=== PATIENT | female | born 1980 | race African-American/Black ===

== ENCOUNTER 2018-05-27 11:52 | Emergency (ER) | payer SELFPAY ==
[~2018-05-27] VITALS: Ht 170.2 cm; Wt 85.0 kg
[~2018-05-27 11:52] MED LIST: [UNRECOGNIZED DRUG - REMARK]
[2018-05-27] MEDS ORDERED: CLONIDINE 0.2MG TABLET PO ONE (13:45)
[2018-05-27 14:15] LABS: BASOPHILS % 0.7 % (0.0-2.0); EOSINOPHILS % 0.2 % (0.0-5.0); HEMATOCRIT. 37.6 % (36.0-48.0); HEMOGLOBIN. 12.1 g/dL (12.0-16.0); MEAN CORPUSCULAR HEMOGLOBIN 25.4 pg (28.0-32.0); MEAN CORPUSCULAR VOLUME 78.9 fL (81.0-99.0); MEAN PLATELET VOLUME 8.3 fl (7.4-10.4); MONOCYTES % 4.7 % (2.0-8.0); NEUTROPHILS % 76.4 % (40.0-76.0); PLATELET 326 x1000/uL (130-400); RED BLOOD CELL COUNT 4.77 mill/uL (4.2-5.4); RED CELL DISTRIBUTION WIDTH 18.4 % (11.6-14.6)
[2018-05-27 14:22] LABS: CHLORIDE 104 mEq/L (98-107); PARTIAL THROMBOPLASTIN TIME 27.9 sec (23.4-31.0); PROTHROMBIN TIME 10.4 sec (9.1-11.1)
[2018-05-27 14:28] LABS: ETHANOL BLOOD < 10 mg/dL
[2018-05-27 14:43] LABS: *AMPHETAMINES SCREEN URINE NEGATIVE (NEGATIVE); *BARBITURATES SCREEN URINE NEGATIVE (NEGATIVE); *BENZODIAZEPINES SCREEN URINE NEGATIVE (NEGATIVE); *COCAINE SCREEN URINE NEGATIVE (NEGATIVE)
[2018-05-27 14:44] LABS: CANNABINOID URINE SCREEN NEGATIVE (NEGATIVE); METHADONE URINE SCREEN NEGATIVE (NEGATIVE); OPIATES URINE SCREEN NEGATIVE (NEGATIVE); PHENCYCLIDINE URINE SCREEN NEGATIVE (NEGATIVE)
[2018-05-27 14:44] LABS: HCG SCREEN NEGATIVE
[2018-05-27] MEDS ORDERED: ATENOLOL 25MG TABLET PO ONE (17:15)
[2018-05-27 19:01] VITALS: BP 161/103
== END 2018-05-27 19:02 | disposition home or self-care (01) ==
LOC: ER 11:52
DX: I10 Essential (primary) hypertension (principal)
CPT/HCPCS: 36415; 70450; 71045; 80053; 80305; 83690; 83880; 84484; 84703; 85025; 85610; 85730; 93005; 99285; G0482